=== PATIENT | male | born 1985 | race American Indian/Alaskan Native ===

== ENCOUNTER 2017-06-06 20:08 | Emergency (ER) | payer OTHER ==
[2017-06-06 23:13] LABS: Bacteria,Urine 1+ /HPF (Negative); Bilirubin,Urine NEG (Negative); Blood,Urine SM (Negative); Color,Urine Yellow (Yellow); Nitrite,Urine NEG (Negative); Protein,Urine <15 mg/dL mg/dL (Negative)
[2017-06-06 23:16] LABS: Basophils % (Auto) 0.5 % (0.0-1.8); Eosinophils # (Auto) 0.3 K/mm3 (0.0-0.4); Hematocrit 47.7 % (35.5-45.6); Hemoglobin 16.2 gm/dl (11.8-15.2); Lymphocytes # (Auto) 0.9 K/mm3 (1.2-5.4); Lymphocytes % (Auto) 16.5 % (13.4-35.0); Mean Corpuscular HGB Conc 34 % (32-34); Mean Corpuscular Hemoglobin 30 pg (28-32); Mean Corpuscular Volume 89 fl (84-94); Monocytes # (Auto) 0.6 K/mm3 (0.0-0.8); Monocytes % (Auto) 9.9 % (0.0-7.3); Platelet Count 229 K/mm3 (140-440); Red Blood Count 5.37 M/mm3 (3.65-5.03); Red Cell Distribution Width 13.9 % (13.2-15.2)
[2017-06-07 00:04] LABS: BUN/Creatinine Ratio 19; Blood Urea Nitrogen 17 mg/dL (9-20); Calcium 9.1 mg/dL (8.4-10.2); Hemolysis Index 12
--- NOTE | 2017-06-07 00:05 | XRay Report ---
FINAL REPORT EXAM: XR CHEST ROUTINE 2V HISTORY: cough COMPARISON: None available. FINDINGS:: Frontal and lateral views of the chest obtained. Cardiac silhouette is within normal limits. No focal consolidation or effusion. No pneumothorax. Visualized bony thorax is grossly intact. IMPRESSION:: No acute findings.
[2017-06-07 11:53] VITALS: BP 134/82
[2017-06-07] MEDS ORDERED: MOTRIN PO ONE (11:53)
[2017-06-07] MEDS ORDERED: TESSALON PERLES PO ONE (11:53)
--- NOTE | 2017-06-07 11:53 | Emergency Department Report ---
- General Chief Complaint: Upper Respiratory Infection Stated Complaint: FLU-LIKE SX Time Seen by Provider: 06/07/17 11:01 Source: patient, family Mode of arrival: Carried (Peds) Limitations: No Limitations - History of Present Illness Initial Comments: This is a 32-year-old male nontoxic, well nourished in appearance, no acute signs of distress presents to the ED with c/o of frontal sinus headache, productive cough, body aches, rhinorrhea, and nasal congestion x 1 week. Patient describes productive cough as yellow mucus production. Patient denies any headache just in the region in the sinus frontal. Patient denies any recent travels, long car rides, or recent hospital stays. Patient denies calf pain or calf tenderness. Patient denies drooling or hoarseness. Denies any hemoptysis. Patient denies chest pain, shortness of breath, fever, chills, nausea, vomiting, headache, stiff neck, numbness, tingling. Patient denies any allergies. PMH includes HIV and asthma. Patient stated CD4 count is above 800. MD Complaint: cough, rhinorrhea, nasal congestion, sinus pain -: week(s) (1) Severity: mild Severity scale (0 -10): 8 Quality: aching Consistency: constant Improves With: nothing Worsens With: nothing Associated Symptoms: headache (frontal sinus), rhinorrhea, nasal congestion, sore throat, cough. denies: fever, chills, myalgias, diaphoresis, stiff neck, chest pain, shortness of breath, abdominal pain, nausea, vomiting, diarrhea, dysuria, rash, confusion, right sweats, weight loss, epistaxis, hoarseness, ear pain Treatments Prior to Arrival: none - Related Data Previous Rx's Medication Instructions Recorded Last Taken Type Amoxicillin/K Clav Tab [Augmentin 1 tab PO Q12HR #20 tab 06/07/17 Unknown Rx 875 mg] Benzonatate [Tessalon Perle] 100 mg PO Q6H PRN #20 capsule 06/07/17 Unknown Rx Ibuprofen [Motrin] 600 mg PO Q8H PRN #30 tablet 06/07/17 Unknown Rx Allergies Allergy/AdvReac Type Severity Reaction Status Date / Time No Known Allergies Allergy Unverified 06/06/17 22:47 ED Review of Systems ROS: Stated complaint: FLU-LIKE SX Other details as noted in HPI Constitutional: denies: chills, fever Eyes: denies: eye pain, eye discharge, vision change ENT: denies: ear pain, throat pain Respiratory: cough. denies: shortness of breath, wheezing Cardiovascular: denies: chest pain, palpitations Endocrine: no symptoms reported Gastrointestinal: denies: abdominal pain, nausea, diarrhea Genitourinary: denies: urgency, dysuria Musculoskeletal: denies: back pain, joint swelling, arthralgia Skin: denies: rash, lesions Neurological: headache. denies: weakness, paresthesias Psychiatric: denies: anxiety, depression Hematological/Lymphatic: denies: easy bleeding, easy bruising ED Past Medical Hx - Past Medical History Hx Asthma: Yes Hx HIV: Yes - Surgical History Additional Surgical History: Bilateral Inguinal Hernia Repair - Social History Smoking Status: Never Smoker Substance Use Type: None - Medications Home Medications: Home Medications Medication Instructions Recorded Confirmed Last Taken Type Amoxicillin/K Clav Tab [Augmentin 1 tab PO Q12HR #20 tab 06/07/17 Unknown Rx 875 mg] Benzonatate [Tessalon Perle] 100 mg PO Q6H PRN #20 capsule 06/07/17 Unknown Rx Ibuprofen [Motrin] 600 mg PO Q8H PRN #30 tablet 06/07/17 Unknown Rx ED Physical Exam - General Limitations: No Limitations General appearance: alert, in no apparent distress - Head Head exam: Present: atraumatic, normocephalic, normal inspection - Eye Eye exam: Present: normal appearance, PERRL, EOMI. Absent: scleral icterus, conjunctival injection, nystagmus, periorbital swelling, periorbital tenderness Pupils: Present: normal accommodation - ENT ENT exam: Present: normal exam, normal orophraynx, mucous membranes moist, TM's normal bilaterally, normal external ear exam - Neck Neck exam: Present: normal inspection, full ROM. Absent: tenderness, meningismus, lymphadenopathy, thyromegaly - Respiratory Respiratory exam: Present: normal lung sounds bilaterally. Absent: respiratory distress, wheezes, rales, rhonchi, stridor, chest wall tenderness, accessory muscle use, decreased breath sounds, prolonged expiratory - Cardiovascular Cardiovascular Exam: Present: regular rate, normal rhythm, normal heart sounds. Absent: bradycardia, tachycardia, irregular rhythm, systolic murmur, diastolic murmur, rubs, gallop - GI/Abdominal GI/Abdominal exam: Present: soft, normal bowel sounds. Absent: distended, tenderness, guarding, rebound, rigid, diminished bowel sounds - Rectal Rectal exam: Present: deferred - Extremities Exam Extremities exam: Present: normal inspection, full ROM, normal capillary refill. Absent: tenderness, pedal edema, joint swelling, calf tenderness - Back Exam Back exam: Present: normal inspection, full ROM. Absent: tenderness, CVA tenderness (R), CVA tenderness (L), muscle spasm, paraspinal tenderness, vertebral tenderness, rash noted - Neurological Exam Neurological exam: Present: alert, oriented X3, CN II-XII intact, normal gait, reflexes normal - Psychiatric Psychiatric exam: Present: normal affect, normal mood - Skin Skin exam: Present: warm, dry, intact, normal color. Absent: rash - Other Other exam information: positive frontal sinus tenderness ED Course Vital Signs 06/06/17 06/07/17 06/07/17 22:40 11:52 12:10 Temperature 98.8 F 98.1 F Pulse Rate 79 71 Respiratory 18 18 20 Rate Blood Pressure 135/87 Blood Pressure 134/82 [Right] O2 Sat by Pulse 100 100 Oximetry - Reevaluation(s) Reevaluation #1: 06/07/17 11:55 Patient is speaking in full sentences with no signs of distress noted. ED Medical Decision Making - Lab Data Result diagrams: 06/06/17 22:59 06/06/17 22:59 - Medical Decision Making This is a 32-year-old male that presents with upper resp infection and sinusitis. Patient is stable and was examined by me. Chest xray has been obtained and dictated by radiologist with normal exam. Patient notified of x- ray results with no question or by the patient. Vital signs stable prior to discharge. Patient is afebrile. Normal heart rate. Negative influenza swab. Labs within normal limits. Patient is >72 hour window for Tamiflu. I'll treat patient empirically with augmentin due to symptoms worsening and symptoms of influenza at discharge. Patient received motrin and tessoln perrls which patient stated symptoms are improving and subsiding. Patient was orally rehydrated in the ER and patient tolerated well with no signs of nausea or vomiting. Patient was instructed Follow-up with a primary care doctor in 3-5 days or if symptoms worsen and continue return to emergency room as soon as possible. At time time of discharge, the patient does not seem toxic or ill in appearance. No acute signs of distress noted. Patient agrees to discharge treatment plan of care. No further questions noted by the patient. This chart is dictated with using [employer] Critical care attestation.: If time is entered above; I have spent that time in minutes in the direct care of this critically ill patient, excluding procedure time. ED Disposition Clinical Impression: Upper respiratory infection Qualifiers: URI type: unspecified URI Qualified Code(s): J06.9 - Acute upper respiratory infection, unspecified Sinusitis Qualifiers: Sinusitis location: frontal Chronicity: acute Recurrence: non-recurrent Qualified Code(s): J01.10 - Acute frontal sinusitis, unspecified Disposition: - TO HOME OR SELFCARE Is pt being admited?: No Does the pt Need Aspirin: No Condition: Stable Instructions: Benzonatate (By mouth), Ibuprofen (By mouth), Amoxicillin/ Clavulanate Potassium (By mouth), Sinusitis (ED), Upper Respiratory Infection ( ED) Additional Instructions: Follow-up with a primary care doctor in 3-5 days or if symptoms worsen and continue return to emergency room as soon as possible. Increase rest, hydration, and take Motrin fever episodes as prescribed. Prescriptions: Amoxicillin/K Clav Tab [Augmentin 875 mg] 1 tab PO Q12HR #20 tab Benzonatate [Tessalon Perle] 100 mg PO Q6H PRN #20 capsule PRN Reason: Cough Ibuprofen [Motrin] 600 mg PO Q8H PRN #30 tablet PRN Reason: Pain/Fever Referrals: TALITA JOSEPH MD [Primary Care Provider] - 3-5 Days PRIMARY CARE, [Referring] - 3-5 Days [facility] [Outside] - 3-5 Days [facility] [Outside] - 3-5 Days Forms: Work/School Release Form(ED)
== END 2017-06-07 12:11 | disposition home or self-care (01) ==
LOC: ED 20:08
DX: J01.10 Acute frontal sinusitis, unspecified (principal); J45.909 Unspecified asthma, uncomplicated
CPT/HCPCS: 36415; 71046; 80048; 81001; 85025; 87400

== ENCOUNTER 2018-02-12 07:51 | Day surgery (SDC) | payer OTHER ==
[2018-02-12] MEDS ORDERED: NARCAN 0.4 MG/1 ML IV PRN (09:05)
[2018-02-12] MEDS ORDERED: TYLENOL PO PRN (09:05)
[2018-02-12] MEDS ORDERED: DILAUDID IV PRN ×2 (09:05)
[2018-02-12] MEDS ORDERED: DEMEROL IV PRN (09:05)
[2018-02-12] MEDS ORDERED: TORADOL IV PRN (09:05)
[2018-02-12] MEDS ORDERED: ZOFRAN IV PRN (09:05)
[2018-02-12] MEDS ORDERED: PERCOCET 5/325 PO PRN (09:05)
--- NOTE | 2018-02-12 09:10 | Anesthesia Consultation ---
Anesthesia Consult and Med Hx Date of service: 02/12/18 - Airway Anesthetic Teeth Evaluation: Good (multiple fillings) ROM Head & Neck: Adequate Mental/Hyoid Distance: Adequate Mallampati Class: Class I Intubation Access Assessment: Good - Pulmonary Exam CTA: Yes - Cardiac Exam Cardiac Exam: No Murmur - Pre-Operative Health Status ASA Pre-Surgery Classification: ASA2 Proposed Anesthetic Plan: General - Pre-Anesthesia Comment Pre-Anesthesia Comments: HIV. h/o Hep C... treated and cleared - Pulmonary Hx Smoking: No Hx Asthma: Yes (INHALER PRN) Hx Sleep Apnea: No - Cardiovascular System Hx Hypertension: No - Gastrointestinal Hx Ulcer: No Hx Gastroesophageal Reflux Disease: No - Endocrine Hx Renal Disease: No - Other Systems Hx Alcohol Use: Yes (frequent use) Hx Substance Use: No Hx Cancer: No
[2018-02-12 09:11] LABS: Basophils % (Auto) 0.6 % (0.0-1.8); Hematocrit 45.3 % (35.5-45.6); Hemoglobin 15.3 gm/dl (11.8-15.2); Lymphocytes # (Auto) 1.7 K/mm3 (1.2-5.4); Lymphocytes % (Auto) 34.3 % (13.4-35.0); Mean Corpuscular HGB Conc 34 % (32-34); Mean Corpuscular Hemoglobin 31 pg (28-32); Mean Corpuscular Volume 91 fl (84-94); Monocytes # (Auto) 0.5 K/mm3 (0.0-0.8); Monocytes % (Auto) 9.9 % (0.0-7.3); Platelet Count 221 K/mm3 (140-440); Red Cell Distribution Width 14.4 % (13.2-15.2)
--- NOTE | 2018-02-12 09:20 | Anesthesia Day of Surgery ---
Anesthesia Day of Surgery - Day of Surgery Patient Examined: Yes Patient H&P Reviewed: Yes Patient is NPO: Yes
[2018-02-12] MEDS: LACTATED RINGERS 1,000 ML IV SCH ×2 (09:27→10:32)
[2018-02-12] MEDS ORDERED: VERSED IV NR (10:00)
[2018-02-12] MEDS ORDERED: ZOFRAN IV NR (10:00)
[2018-02-12] MEDS ORDERED: SUBLIMAZE ONE ×2 (10:21→11:09)
[2018-02-12] MEDS ORDERED: DIPRIVAN 10 MG/ML IV ONE (10:21)
[2018-02-12] MEDS ORDERED: XYLOCAINE MPF 2% ONE (10:21)
[2018-02-12] MEDS ORDERED: MARCAINE 0.25% INFILTRATI ONE ×2 (10:28→10:43)
[2018-02-12] MEDS ORDERED: TRIPLE ANTIBIOTIC TP ONE (10:28)
[2018-02-12] MEDS ORDERED: NACL 0.9% IR ONE (10:43)
[2018-02-12] MEDS ORDERED: ZOFRAN ONE (10:57)
[2018-02-12] MEDS ORDERED: ANCEF/STERILE WATER 2 GM/20 ML IV NR (11:00)
[2018-02-12] MEDS ORDERED: TORADOL ONE (11:02)
[2018-02-12] MEDS ORDERED: ROBINUL ONE (11:03)
--- NOTE | 2018-02-12 11:52 | Post Operative Note ---
Date of procedure: 02/12/18 Pre-op diagnosis: balanitis Post-op diagnosis: same Findings: as above Procedure: circ sleeve Anesthesia: GETA Surgeon: BLAS GONZALEZ Estimated blood loss: minimal Pathology: list (foreskin) Specimen disposition: to lab Condition: stable Disposition: PACU
--- NOTE | 2018-02-12 11:54 | Discharge Summary ---
Short Stay Discharge Plan Activity: other (no strainin g) Weight Bearing Status: Full Weight Bearing Diet: regular Wound: open to air (remove dressing at 10 pm tonight ioce x 24 hrs when awake ) Special Instructions: other (ice in RR) Follow up with: PRIMARY CARE,MD [Primary Care Provider] - 7 Days BLAS GONZALEZ MD [Staff Physician] - 10 Days
--- NOTE | 2018-02-12 13:16 | Post Anesthesia Evaluation ---
- Post Anesthesia Evaluation Patient Participated: Yes Airway Patent: Yes Stable Respiratory Function: Yes Nausea/Vomiting: No Temp > 96.8F: Yes Pain Manageable: Yes Adequeate Hydration: Yes Anesthesia Complications: No
[2018-02-12 13:32] VITALS: BP 130/89
--- NOTE | 2018-02-12 14:45 | Operative Report ---
PREOPERATIVE DIAGNOSES: Recurrent balanitis, history of human immunodeficiency virus and hep C. POSTOPERATIVE DIAGNOSES: Recurrent balanitis, history of human immunodeficiency virus and hep C. PROCEDURE: Circumcision, sleeve technique. SURGEON: Kong James M.D. ANESTHESIA: General. FINDINGS: This is a gentleman with recurrent balanitis, wants circumcision. His history is as mentioned above. He now presents for circumcision. DESCRIPTION OF PROCEDURE: The patient was brought to the operating room and placed on the operating table. Following induction of anesthesia, placed in supine position, prepped and draped in usual sterile fashion. Two circumferential incisions were mapped out with a marking pencil. The penile incision was made and then the inner foreskin coronal incision was made. This was connected dorsally. Large amount of excess skin was excised. There were large dilated veins beneath the layer of the circumcisions, which were not disturbed. Skin was removed. Sutures were placed at 12, 3, 6, and 9 o'clock position. Each quadrant was bisected with 3-0 chromic. Any small vessels were cauterized or tied with 3-0 Vicryl. The patient tolerated the procedure well. Wound was copiously irrigated and closure was completed with 3-0 chromic. A loose dressing was applied, to be removed later today, was brought to recovery room in stable condition. JOB# [id number] TAVIA/MATHEW
== END 2018-02-12 13:58 | disposition home or self-care (01) ==
LOC: OR 07:51
PROVIDERS: ATTEND Urology
DX: N48.1 Balanitis (principal); B20 Human immunodeficiency virus [HIV] disease; H40.9 Unspecified glaucoma; E78.00 Pure hypercholesterolemia, unspecified; M19.90 Unspecified osteoarthritis, unspecified site; K21.9 Gastro-esophageal reflux disease without esophagitis; Z72.89 Other problems related to lifestyle; Z86.2 Personal history of diseases of the blood and blood-forming organs and certain disorders involving the immune mechanism; Z86.19 Personal history of other infectious and parasitic diseases; Z79.899 Other long term (current) drug therapy
CPT/HCPCS: 36415; 54161; 85025; 88304; J0690; J1170; J1885; J2250; J2405; J2704; J3010; J7120; A6250